=== PATIENT | female | born 1995 | race Caucasian/White ===

== ENCOUNTER 2023-11-15 15:40 | Observation (INO) | payer BC, OTHER ==
[2023-11-15 15:48] VITALS: BMI 28.3
[2023-11-15 17:26] LABS: HEMATOCRIT 42.7 % (32.4-45.2); HEMOGLOBIN 14.2 G/dL (10.7-15.3); MCH 29.9 pg (25.7-33.7); MCHC 33.3 g/dl (32.0-36.0); MEAN CELL VOLUME 89.5 fl (80-96); MEAN PLT VOLUME 8.7 fl (7.5-11.1); PLATELET COUNT 318.2 10^3/uL (134-434); RBC 4.77 10^6/uL (3.60-5.2); RDW 13.8 % (11.6-15.6); WHITE BLOOD COUNT 9.7 10^3/uL (4.0-10.8)
[2023-11-15 18:09] LABS: ACTIVATED PTT 32.1 SECONDS (25.2-36.5)
[2023-11-15 18:16] LABS: INR 0.95 (0.83-1.09); PROTHROMBIN TIME (PATIENT) 10.8 SEC (9.7-13.0)
[2023-11-15 18:20] LABS: PLATELET ESTIMATE ADEQUATE
[2023-11-15 18:29] LABS: ALBUMIN 4.6 g/dl (3.4-5.0); ALK PHOS 82 U/L (45-117); ANION GAP 9 mmol/L (4-13); BILIRUBIN,TOTAL 0.6 mg/dl (0.2-1); CALCIUM 9.9 mg/dl (8.5-10.1); CHLORIDE 104 mmol/L (98-107); CO2 27 mmol/L (21-32); CREATININE 0.9 mg/dl (0.6-1.3); GLUCOSE,RANDOM 98 mg/dl (74-106); SGOT/AST 17 U/L (15-37); SGPT/ALT 20 U/L (7-52); SODIUM 140 mmol/L (136-145); TOT PROT 7.5 g/dl (6.4-8.2)
[2023-11-15 20:19] VITALS: RESP 20
[2023-11-16] MEDS: SODIUM CHLORIDE 1,000 ML IV SCH (00:30)
[2023-11-16 02:19] VITALS: BP 107/66; PULSE 80; TEMP 98.9
[2023-11-16 08:48] LABS: HEMOGLOBIN 12.8 GM/dL (10.7-15.3); MCH 29.4 pg (25.7-33.7); MCHC 33.8 g/dl (32.0-36.0); MEAN PLT VOLUME 8.1 fl (7.5-11.1); PLATELET COUNT 320 10^3/uL (134-434); RBC 4.37 M/mm3 (3.60-5.2); RDW 13.4 % (11.6-15.6); WHITE BLOOD COUNT 7.9 K/mm3 (4.0-10.0)
[2023-11-16 09:03] LABS: POTASSIUM 4.1 mmol/L (3.5-5.1)
[2023-11-16 09:08] LABS: CALCIUM 8.6 mg/dL (8.5-10.1)
[2023-11-16 09:09] LABS: ALBUMIN 3.6 g/dl (3.4-5.0); BLOOD UREA NITROGEN 8.5 mg/dL (7-18)
[2023-11-16 09:12] LABS: CREATININE 0.8 mg/dL (0.55-1.3)
[2023-11-16 09:13] LABS: TOT PROT 7.2 g/dl (6.4-8.2)
== END 2023-11-16 09:08 | disposition home or self-care (01) ==
LOC: FER 15:40 → J6S 18:30 → INTOOBSV 18:30
PROVIDERS: ADMIT Internal Medicine; ATTEND Internal Medicine
PROC: 3E0337Z Introduction of Electrolytic and Water Balance Substance into Peripheral Vein, Percutaneous Approach (ICD-10-PCS; principal; 2023-11-15)
DX: T18.5XXA Foreign body in anus and rectum, initial encounter (principal); X58.XXXA Exposure to other specified factors, initial encounter; Y93.89 Activity, other specified; Y92.89 Other specified places as the place of occurrence of the external cause
CPT/HCPCS: 36415; 72170-TC-FY; 74177-TC; 80053; 84703; 85027; 85610; 85730; 86850; 86900; 86901; 99285-25; G0378